=== PATIENT | female | born 1970 | race Caucasian/White ===

== ENCOUNTER → 2016-06-17 | Outpatient (CLI) | payer OTHER ==
[~2016-06-17] MED LIST: CHOL20009 PO; KETO10TA PO; LEVO112T4 PO; MTRUNK PO; OXYC-57 PO; PRENTAB26 PO
--- NOTE | 2016-06-21 12:25 | MAMMOGRAPHY REPORT ---
BILATERAL DIGITAL SCREENING MAMMOGRAM TOMOSYNTHESIS WITH CAD: 06/17/2016 CLINICAL HISTORY: Routine screening. Patient has no complaints. TECHNIQUE: Breast tomosynthesis in addition to standard 2D mammography was performed. Current study was also evaluated with a Computer Aided Detection (CAD) system. COMPARISON: Comparison is made to exams dated: 06/23/2015 mammogram, 05/01/2013 mammogram, 06/16/2015 ma mmogram, 06/11/2014 mammogram, 04/30/2012 mammogram, and 10/31/2011 mammogram - [facility] ter. BREAST COMPOSITION: The tissue of both breasts is heterogeneously dense, which may obscure small ma sses. FINDINGS: The parenchymal pattern is unchanged. No developing mass, architectural distortion or clu ster of suspicious microcalcifications is seen in either breast. IMPRESSION: ACR BI-RADS CATEGORY 2: BENIGN There is no mammographic evidence of malignancy. A 1 year screening mammogram is recommended. The p atient will receive written notification of the results. Approximately 10% of breast cancers are not detected with mammography. A negative mammographic repor t should not delay biopsy if a clinically suggestive mass is present. Josseline Fitzgerald M.D. ay/:06/20/2016 15:49:34 Rabbit Breeder: Ashely AVILA(R)(M), [facility] letter sent: Normal 1/2 BI-RADS Code: ACR BI-RADS Category 2: Benign
== END | disposition home or self-care (01) ==
LOC: C.MAMM 16:27
PROVIDERS: ATTEND Obstetrics & Gynecology
DX: Z12.31 Encounter for screening mammogram for malignant neoplasm of breast (principal)

== ENCOUNTER → 2016-09-23 | Outpatient (CLI) | payer OTHER ==
--- NOTE | 2016-09-23 16:09 | DIAGNOSTIC IMAGING REPORT ---
RIGHT KNEE MRI HISTORY: RIGHT KNEE PAIN Right COMPARISON STUDY: None. TECHNIQUE: Multiplanar multisequence MRI of the right knee was performed according to standard department protocol without the use of contrast. FINDINGS: Menisci: Focal tear with thin the junction of the body and posterior horn of the medial meniscus best seen on axial image 15 consistent with a radial tear. Total length of the tear is 9 mm. The fragment is not displaced. The lateral meniscus is intact. Ligaments: The ACL, PCL, and LCL are intact. There is mild edema surrounding the intact MCL fibers. This is consistent with a grade I MCL injury (sprain). Extensor mechanism: The quadriceps tendon and patellar ligament are intact. Articular cartilage and bone: No fracture or dislocation. Small cartilage fissure within the lateral patellar facet. Remaining cartilage spaces are maintained. Joint effusion: Trace. Soft tissues: A 5.1 x 2.1 x 1.3 cm popliteal cyst. There is soft tissue edema within the posterior fossa. This may represent a partially ruptured popliteal cyst. IMPRESSION: 1. Focal radial tear within the junction of the body and posterior horn of the medial meniscus. 2. Grade I MCL injury (sprain). 3. Trace joint effusion. 4. Popliteal cyst. Edema surrounding the popliteal cyst favors a partially ruptured cyst. Electronically signed by: Terence Pal M.D. 09/23/2016 4:07 PM Dictated Date/Time: 09/23/2016 4:00 PM
== END | disposition home or self-care (01) ==
LOC: C.MRI 14:47
PROVIDERS: ATTEND Orthopaedic Surgery
DX: S83.241A Other tear of medial meniscus, current injury, right knee, initial encounter (principal); X58.XXXA Exposure to other specified factors, initial encounter

== ENCOUNTER → 2016-09-28 | Day surgery (SDC) | payer OTHER ==
[2016-09-27 13:15] VITALS: Ht 172.7 cm; Wt 72.7 kg
[~2016-09-28] VITALS: Ht 172.7 cm; Wt 72.7 kg
[~2016-09-28] MED LIST changes: +ATROPINE SULFATE 0.1 MG/ML 5ML SYR IV PRN; +CEFAZOLIN 1000MG/55 ML D5W IV SCH; +DEXAMETHASONE SOD INJ 4 MG/ML VIAL ONE; +EpINEphrine INJ 1MG/ML AMP 1 MG/ML AMP ONE; +FENTANYL CITRATE INJ 50 MCG/1 ML 2 ML VIAL ONE; +KETOROLAC TROMETHAMINE 30 MG/ML VIAL IV. PRN; +KETOROLAC TROMETHAMINE 30 MG/ML VIAL ONE; +LIDOCAINE HCL 2% 2 ML VIAL (20MG/ML) ONE; +MIDAZOLAM HCL 1 MG/ML 2ML VIAL ONE; +MISSING PHYSICIAN SIGNATURE ON ORDER SCH; -MTRUNK PO; +ONDANSETRON INJ 2 MG/ML 2 ML VIAL IV PRN; +ONDANSETRON INJ 2 MG/ML 2 ML VIAL ONE; +OXYCODONE/ACETAMINOPHEN 5-325 TAB PO PRN; -PRENTAB26 PO; +PROMETHAZINE HCL INJ 6.25 MG in SODIUM CHLORIDE 0.9% 50ML 50 ML IV PRN; +PROPOFOL IV EMULSION 10 MG/ML 20 ML VIAL IV ONE; +ROPIVACAINE 0.5% 5 MG/ML 30 ML VIAL ONE; +SODIUM CHLORIDE 0.9% 1000ML 1,000 ML IV SCH
--- NOTE | 2016-09-28 09:29 | History & Physical Bridge - SC ---
H&P Re-Evaluation Bridge Note: I have examined the patient, reviewed the History & Physical and in the interval since the performance of the History & Physical I have noted the following changes of clinical significance: No changes noted
[2016-09-28] MEDS: LACTATED RINGER'S 1000ML 1,000 ML IV SCH ×2 (09:37→12:18)
--- NOTE | 2016-09-28 11:40 | Discharge Instructions-SurgCtr ---
Discharge Instructions Date of Service Sep 28, 2016. Visit Reason for Visit: Right Knee Current Tear Medial Cartilage &/Or Men Discharge Discharge Diagnosis / Problem: RIGHT MEDIAL MENISCUS TEAR Discharge Goals Goal(s): Decrease discomfort, Improve function, Therapeutic intervention Activity Recommendations Activity Limitations: per Instructions/Follow-up section Weightbearing Status: Right weightbearing (as tolerated) Anesthesia . Post Anesthesia Instructions: If you have had General Anesthesia or IV Sedation: * Do not drive today. * Resume driving when surgeon permits. * Do not make important decisions or sign legal documents today. * Call surgeon for: 1. Temperature elevations greater than 101 degrees F. 2. Uncontrollable pain. 3. Excessive bleeding. 4. Persistent nausea and vomiting. 5. Medication intolerance (nausea, vomiting or rash). * For nausea and vomiting use only clear liquids such as: tea, soda, bouillon until nausea subsides, then gradually increase diet as tolerated. * If you have any concerns or questions, call your surgeon's office. If physician is unavailable and it is an emergency, call 911 or go to the nearest emergency room. . Instructions / Follow-Up Instructions / Follow-Up MEDICATIONS: * Resume previous medications unless instructed otherwise by your surgeon. * Always take pain medication on a full stomach or with food to avoid upset stomach. * Do not drink alcohol or drive while taking narcotics. * Ibuprofen or Tylenol may be taken if narcotic not needed. SPECIAL CARE INSTRUCTIONS: __ None _X_ Keep extremity elevated and iced x 48 hours; apply ice 20-30 minutes 8-10 times/day. May remove at night. __ Crutches __ May discard when able __ Brace/Post-op shoe __ 24 hrs/day __ Remove at night _X_ Dressing __ Maintain until seen in office, may shower with plastic over site _X_ Remove dressings in 24-48 hours and then may shower _X_ Cover incisions with band-aids after showering __ Do not remove steri-strips Call physician if chills or temperature rises above 102 degrees or pain unrelieved by prescribed pain medications. Office [phone] FOLLOW UP IN 2 WEEKS Diet Recommendations Home Diet: resume previous diet Procedures Procedures Performed: Right Knee Arthroscopy, Partial Medial Meniscectomy Pending Studies Studies pending at discharge: no Medical Emergencies . Who to Call and When: Medical Emergencies: If at any time you feel your situation is an emergency, please call 911 immediately. . Non-Emergent Contact Non-Emergency issues call your: Surgeon . . "Provider Documentation" section prepared by Efrain Hager. .
--- NOTE | 2016-09-28 11:40 | [facility] Post Operative Brief Note ---
Immediate Operative Summary Operative Date Sep 28, 2016. Pre-Operative Diagnosis Medial Meniscus Tear Right Knee Post-Operative Diagnosis same + Mild DJD Procedure(s) Performed Right Knee Arthroscopy, Partial Medial Meniscectomy Surgeon Dr Hastings Schedule Supervisor Surgeon(s) Koffi Hager PA-C Estimated Blood Loss minimal Findings Medial Meniscus Tear + Mild DJD Specimens none Anesthesia General Complication(s) None Disposition Recovery Room / PACU
[2016-09-28] MEDS: FENTANYL CITRATE INJ 50 MCG/1 ML 2 ML VIAL IV PRN ×3 (12:00→12:36)
--- NOTE | 2016-09-28 12:38 | OPERATIVE REPORT ---
DATE OF OPERATION: 09/28/2016 SURGEON: Dr. Blaine Hastings. CONTACT LENS ASSISTANT: ELLIS Be PREOPERATIVE DIAGNOSIS: Right degenerative medial meniscus tear. POSTOPERATIVE DIAGNOSES: 1. Right degenerative medial meniscus tear. 2. Right knee, very mild knee degenerative joint disease. PROCEDURES PERFORMED: 1. Right knee exam under anesthesia. 2. Right knee diagnostic arthroscopy. 3. Right knee arthroscopic partial medial meniscectomy. COMPLICATIONS: None. ESTIMATED BLOOD LOSS: Minimal. TOURNIQUET TIME: 21 minutes at 300 mmHg. ANESTHESIA: General. SPECIMENS: None. 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 She sustained a twisting type injury. She was seen by my partner Dr. Rodrigez. She was diagnosed with mild MCL sprain and a medial meniscus tear. This was confirmed by MRI. Her symptoms localized to the medial side of her knee. She elected to proceed with surgical treatment. OPERATIVE FINDINGS: Examination under anesthesia of the right knee revealed just a trace knee effusion. Range of motion is full extension to 135 degrees of flexion. She had negative Mary, negative anterior drawer, and negative posterior drawer. No varus or valgus instability. Cinthia's is negative for mechanical symptoms. ARTHROSCOPIC FINDINGS: Arthroscopic findings revealed just a trace knee effusion. The undersurface of the patella and trochlea were fairly normal. In the intercondylar notch, the ACL and PCL were intact. In the medial compartment, there was a complex degenerative tear of the posterior horn of the medial meniscus. The articular surface of the femur and the tibia showed some mild grade 1 changes. In the lateral compartment, there are some slight fraying in the inner rim of the lateral meniscus. Some grade 2 changes in the lateral tibial plateau. OPERATIVE PROCEDURE: The patient was taken to the operating room, identified and placed on the operating table in the supine position. All contact areas were appropriately padded. IV antibiotics were provided by anesthesia team. General anesthetic was implemented by anesthesia team. Right thigh tourniquet was then placed. The right knee was then examined under anesthesia with findings as described above. The right leg was then prepped and draped in the usual sterile fashion. The right leg was elevated and exsanguinated with Esmarch and tourniquet was placed at 300 mmHg. Routine right knee arthroscopy was then performed through typical anteromedial and anterolateral portals. A superolateral outflow portal was established for outflow. I did resect some of the fat pad, so that I could adequately see from side to side. Attention was drawn to the medial meniscus. With the use of motorized and hand controlled instruments, a partial medial meniscectomy was then performed. I resected the meniscus back to stable tissue. We tried to leave as much tissue present to provide residual meniscal function. Medial compartment was fairly tight, so I think her MCL injury was fairly mild. Once this was complete, the arthroscopic instruments were placed throughout the knee joint. All extraneous debris was removed. I did shave and trim up the inner rim over lateral meniscus slightly. Once this was complete, the arthroscopic instruments were then removed from the joint. The portals were closed with 3-0 Prolene suture in a simple fashion. The knee was then cleaned and dried. The knee was then injected with 30 mL of 0.5% ropivacaine with epinephrine and 30 mg of Toradol. A sterile dressing with Xeroform, 4 x 4, sterile cast padding and Qamar bandage were applied. The patient then brought out of general anesthesia and transferred to the recovery room in stable condition. The patient tolerated the procedure well with no complications. All needle and sponge counts were correct at the end of the operation. I attest to the content of the Intraoperative Record and any orders documented therein. Any exception s are noted below.
[2016-09-28 12:57] VITALS: TEMP 37.3
--- NOTE | 2016-09-28 13:19 | Anesthesia Progress Nt - [facility] ---
Anesthesia Post Op Note Date & Time Sep 28, 2016 at 13:19 Vital Signs Pain Intensity: 3.0 Vital Signs Past 12 Hours Date Time Temp Pulse Resp B/P (MAP) Pulse Ox O2 Delivery O2 Flow Rate FiO2 09/28/16 12:57 37.3 65 16 112/65 (81) 99 Room Air 09/28/16 12:47 113/70 09/28/16 12:46 37.1 61 16 113/70 99 Room Air 09/28/16 12:45 52 10 09/28/16 12:45 54 10 97 09/28/16 12:42 114/72 09/28/16 12:40 72 22 09/28/16 12:40 74 22 100 09/28/16 12:37 121/72 09/28/16 12:35 55 22 09/28/16 12:35 57 22 99 09/28/16 12:32 113/67 09/28/16 12:30 53 11 09/28/16 12:30 53 11 99 09/28/16 12:27 122/68 09/28/16 12:25 72 21 09/28/16 12:25 75 21 100 09/28/16 12:22 124/78 09/28/16 12:20 49 12 100 09/28/16 12:20 49 12 09/28/16 12:19 49 8 100 09/28/16 12:19 48 8 09/28/16 12:17 129/83 09/28/16 12:15 112/70 09/28/16 12:14 54 7 09/28/16 12:14 52 7 100 09/28/16 12:12 112/70 09/28/16 12:09 52 10 100 09/28/16 12:09 55 10 09/28/16 12:07 135/81 09/28/16 12:04 53 16 100 09/28/16 12:04 51 16 09/28/16 12:02 131/81 09/28/16 11:59 54 17 09/28/16 11:59 56 17 97 09/28/16 11:57 133/80 09/28/16 11:54 43 11 09/28/16 11:54 43 11 09/28/16 11:52 125/74 09/28/16 11:49 58 14 09/28/16 11:49 61 14 100 09/28/16 11:47 127/80 09/28/16 11:44 71 19 09/28/16 11:44 73 19 100 09/28/16 11:42 140/74 09/28/16 11:40 127/65 09/28/16 11:39 36.5 52 12 127/65 100 Diffusion Mask 6 09/28/16 09:07 37.1 58 16 118/78 (91) 100 Room Air Notes Mental Status: alert / awake / arousable, participated in evaluation Pt Amnestic to Procedure: Yes Nausea / Vomiting: adequately controlled Pain: adequately controlled Airway Patency, RR, SpO2: stable & adequate BP & HR: stable & adequate Hydration State: stable & adequate Anesthetic Complications: no major complications apparent
[2016-09-28 13:22] VITALS: BP 114/71; PULSE 52; O2SAT 100
== END | disposition home or self-care (01) ==
LOC: X.SURG 08:30
PROVIDERS: ATTEND Orthopaedic Surgery Sports Medicine
DX: S83.206A Unspecified tear of unspecified meniscus, current injury, right knee, initial encounter (principal); X50.0XXA Overexertion from strenuous movement or load, initial encounter; M17.11 Unilateral primary osteoarthritis, right knee

== ENCOUNTER → 2016-10-26 | Outpatient (CLI) | payer OTHER ==
[~2016-10-26] MED LIST changes: -ATROPINE SULFATE 0.1 MG/ML 5ML SYR IV PRN; -CEFAZOLIN 1000MG/55 ML D5W IV SCH; -DEXAMETHASONE SOD INJ 4 MG/ML VIAL ONE; -EpINEphrine INJ 1MG/ML AMP 1 MG/ML AMP ONE; -FENTANYL CITRATE INJ 50 MCG/1 ML 2 ML VIAL ONE; -KETO10TA PO; -KETOROLAC TROMETHAMINE 30 MG/ML VIAL IV. PRN; -KETOROLAC TROMETHAMINE 30 MG/ML VIAL ONE; -LIDOCAINE HCL 2% 2 ML VIAL (20MG/ML) ONE; -MIDAZOLAM HCL 1 MG/ML 2ML VIAL ONE; -MISSING PHYSICIAN SIGNATURE ON ORDER SCH; -ONDANSETRON INJ 2 MG/ML 2 ML VIAL IV PRN; -ONDANSETRON INJ 2 MG/ML 2 ML VIAL ONE; -OXYCODONE/ACETAMINOPHEN 5-325 TAB PO PRN; -PROMETHAZINE HCL INJ 6.25 MG in SODIUM CHLORIDE 0.9% 50ML 50 ML IV PRN; -PROPOFOL IV EMULSION 10 MG/ML 20 ML VIAL IV ONE; -ROPIVACAINE 0.5% 5 MG/ML 30 ML VIAL ONE; -SODIUM CHLORIDE 0.9% 1000ML 1,000 ML IV SCH
[2016-10-26 17:09] LABS: THYROID STIMULATING HORMONE 0.152 uIu/ml (0.300-4.500)
== END | disposition home or self-care (01) ==
LOC: C.LAB1850 15:20
PROVIDERS: ATTEND Family Medicine
DX: E03.9 Hypothyroidism, unspecified (principal); E55.9 Vitamin D deficiency, unspecified

== ENCOUNTER → 2017-05-08 | Outpatient (CLI) | payer OTHER ==
[~2017-05-08] MED LIST changes: -OXYC-57 PO
== END | disposition home or self-care (01) ==
LOC: C.PAPS 11:01
PROVIDERS: ATTEND Obstetrics & Gynecology
DX: Z87.898 Personal history of other specified conditions (principal); Z01.419 Encounter for gynecological examination (general) (routine) without abnormal findings

== ENCOUNTER → 2017-06-21 | Outpatient (CLI) | payer OTHER ==
--- NOTE | 2017-06-22 15:17 | MAMMOGRAPHY REPORT ---
BILATERAL DIGITAL SCREENING MAMMOGRAM TOMOSYNTHESIS WITH CAD: 06/21/2017 CLINICAL HISTORY: Routine screening. TECHNIQUE: Breast tomosynthesis in addition to standard 2D mammography was performed. Current study was also evaluated with a Computer Aided Detection (CAD) system. COMPARISON: Comparison is made to exams dated: 06/17/2016 mammogram, 06/16/2015 mammogram, 06/11/2014 m ammogram, 05/01/2013 mammogram, 04/30/2012 mammogram, and 04/29/2011 mammogram - [facility] er. BREAST COMPOSITION: The tissue of both breasts is heterogeneously dense, which may obscure small mas ses. FINDINGS: The parenchymal pattern is unchanged. No developing mass, architectural distortion or clus ter of suspicious microcalcifications is seen in either breast. IMPRESSION: ACR BI-RADS CATEGORY 2: BENIGN There is no mammographic evidence of malignancy. A 1 year screening mammogram is recommended. The pa tient will receive written notification of the results. Approximately 10% of breast cancers are not detected with mammography. A negative mammographic report should not delay biopsy if a clinically suggestive mass is present. Josseline Fitzgerald M.D. ay/:06/21/2017 16:36:55 Forms Designer: Best AVILA(R)(M), [facility] letter sent: Normal 1/2 BI-RADS Code: ACR BI-RADS Category 2: Benign
== END | disposition home or self-care (01) ==
LOC: C.MAMM 16:07
PROVIDERS: ATTEND Obstetrics & Gynecology
DX: Z12.31 Encounter for screening mammogram for malignant neoplasm of breast (principal)

== ENCOUNTER → 2017-07-05 | Outpatient (CLI) | payer OTHER | END | disposition home or self-care (01) | LOC: C.LAB1850 07:28 | PROVIDERS: ATTEND Family Medicine | DX: E03.9 Hypothyroidism, unspecified (principal); E55.9 Vitamin D deficiency, unspecified; K90.9 Intestinal malabsorption, unspecified ==

== ENCOUNTER 2023-11-07 10:41 | Inpatient (IN) ==
[2023-11-07] MEDS: ACETAMINOPHEN 1,000 MG/100 ML VIAL IV STA (10:55)
[2023-11-07] MEDS: ONDANSETRON INJ 2 MG/ML 2 ML VIAL IV STA (10:55)
--- NOTE | 2023-11-07 11:01 | Emergency Department Note ---
Impression & Plan Hydronephrosis concurrent with and due to calculi of kidney and ureter, Acute right flank pain, Mass of left thigh ED Provider Note NAME: GATITO DONOVAN AGE: 53 SEX: F : 1970 ARRIVES VIA: Ambulance INFORMANT: Patient, ED PROVIDER(S): Alden Gan DO CHIEF COMPLAINT: Flank pain HPI: The patient is a 53-year-old female who presented to the emergency department with acute onset of right-sided flank pain. The patient states that she was sleeping at the time and she was awoke with severe right-sided flank pain that she rated 10 out of 10. She does have a history of kidney stones in the past. She has had lithotripsy in the past as well. She has severe nausea as well as vomiting. She called 911 because of severity of pain. The patient received IV Toradol IV Zofran and IV fentanyl prior to arrival. She states her pain is significantly improved but her nausea is still present and severe. She denies having any hematemesis. She denies having any chest pain or difficulty breathing. ROS: See above HPI for pertinent positives & negatives. A total of 10 systems reviewed and were otherwise negative. PAST MEDICAL HISTORY: See Below PAST SURGICAL HISTORY: See Below FAMILY HISTORY: See Below SOCIAL HISTORY: See Below HOME MEDICATIONS: See Below ALLERGIES: See Below VITALS: See Below PHYSICAL EXAMINATION: GENERAL: The patient is awake and alert. The patient is very anxious and appears to be uncomfortable. EYES: The conjunctivae are clear. The pupils are round and reactive. EARS, NOSE, MOUTH AND THROAT: The nose is without any evidence of any deformity. NECK: The neck is nontender and supple. RESPIRATORY: Normal respiratory effort is noted there is no evidence of wheezing rhonchi or rales CARDIOVASCULAR: Regular rate and rhythm noted there no murmurs rubs or gallops normal S1 normal S2. GASTROINTESTINAL: The abdomen is soft. Abdomen is nontender. BACK: Right CVA tenderness was noted to percussion. MUSCULOSKELETAL/EXTREMITIES: There is no evidence of gross deformity full range of motion is noted in the hips and shoulders. SKIN: There is no obvious evidence of any rash. There are no petechiae, pallor or cyanosis noted. NEUROLOGIC: Patient is awake alert and oriented x3. MEDICAL DECISION MAKING: The patient is a 53-year-old female who presented to the emergency department for an acute onset of right flank pain. The patient was awoken from sleep with the pain. She does have a history of kidney stone and renal colic in the past and has had lithotripsy. The patient was found to have an obstructing calculus in the distal right ureter. There was hydronephrosis noted. The patient was treated with multiple doses of pain medication in the emergency department. She was reevaluated multiple times. Ultimately she was much more comfortable but given the size of the kidney stone as well as hydronephrosis I do not feel that she would be a good candidate for outpatient management. For this reason I discussed her condition with the on-call [facility] hospitalist as well as the on-call urology group. They have agreed to evaluate the patient for further management and disposition. Triage Nursing notes reviewed. Prior medical records reviewed Vital Signs: reviewed and remarkable for no significant abnormalities Differential diagnosis: Renal colic, UTI, appendicitis, diverticulitis, mesenteric ischemia, aortic pathology, infections, inflammatory bowel disease, PUD, biliary pathology, as well as other pathologies. ER treatment provided: See below Diagnostics interpreted by me: ECG: [none] Cardiac Monitoring: An order was placed for continuous cardiac monitoring. The monitor shows a rate of 57 bpm with sinus bradycardia. Laboratory studies: As stated above and show below. Imaging studies: See below. Radiographic imaging was reviewed by myself Consultation(s): I discussed this case with Tiarra who is on for the urology group. I discussed this case with Jacki who is on for the [facility] Hospitalist group. Past Med/Surg History Problem List (Updated 11/07/23 @ 14:06 by Alden Gan DO) Mass of left thigh (Acute) Acute right flank pain (Acute) Hydronephrosis concurrent with and due to calculi of kidney and ureter (Acute) Right ureteral stone Postmenopausal Colon cancer screening Choroid plexus cyst Hypothyroidism Encounter for gynecological examination with abnormal finding Breast mass, right History of cervical dysplasia Adhesive capsulitis of left shoulder Tendinitis of left rotator cuff Encounter for pre-operative examination Status post arthroscopy of left shoulder Piriformis syndrome of left side Adhesive capsulitis of right shoulder Status post arthroscopy of right shoulder UTI (urinary tract infection) Nephrolithiasis Kidney stones, calcium oxalate Epidermal cyst Medical History Kidney stones hx History of COVID-19 03/2021>COUGH ONLY/RESOLVED History of endometriosis Hypothyroidism History of TMJ disorder remote hx, 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 History of tonsillectomy and adenoidectomy History of arthroscopy of right knee History of wisdom tooth extraction History of laparoscopy eosis S/P fine needle aspiration benign right breast mass Status post colposcopy S/P LEEP of cervix 2004 Family History Uncle Diabetes Grandmother (Maternal) Diabetes Lung cancer Grandmother (Paternal) Diabetes Grandfather (Maternal) Diabetes Grandfather (Paternal) Diabetes Father Dyslipidemia Multiple myeloma Brother History of anesthesia reaction combative Other Myocardial infarction Denies family history of Ovarian cancer Breast cancer Colorectal cancer Social History Smoking Status: Never smoker Second Hand Exposure: No; Do You Dip or Chew Tobacco: No; Hx Alcohol Use: Yes Hx Substance Use: No Preferred Language: Spanish Communication Ability: Effective Watershed Manager Required: No Beliefs That Will Affect Care: Yarsanism Yarsanism Beliefs: RESTORATION Current Living Situation: Family Current Living Situation Comment: CHILDREN Feels Safe at Home: Yes Assistive Devices: Other Allergies Allergies Allergy/AdvReac Type Severity Reaction Status Date / Time No Known Allergies Allergy Unknown Verified 11/07/23 12:48 Home Meds Home Medications Medication Instructions Recorded Confirmed levothyroxine 125 mcg tablet 125 mcg PO QAM 05/12/19 11/07/23 cholecalciferol (vitamin D3) 125 125 mcg PO QAM 06/17/20 11/07/23 mcg (5,000 unit) tablet (Vitamin D3) cyanocobalamin (vitamin B-12) 5,000 mcg PO WK 06/17/20 11/07/23 5,000 mcg disintegrating tablet topiramate 200 mg tablet 200 mg PO HS 11/07/23 11/07/23 Results & Data (ED) Vital Signs Vital Signs - 24 hr 11/07/23 11:02 11/07/23 11:03 11/07/23 12:14 Temperature 36.5 C Temperature Source Oral Pulse Rate 78 48 L Pulse Rate [Apical] 57 L Respiratory Rate 18 18 Respiratory Effort / Characteristics Non-Labored Spontaneous Non-Labored Respiratory Depth Normal Normal Respiratory Pattern Regular Regular Blood Pressure 134/62 Blood Pressure Mean 86 Pulse Oximetry 98 97 Oxygen Delivery Method Room Air Room Air Sepsis Recent Fever Within 48 Hours No Sepsis New/Unexplained Change in Mental Status N/A Sepsis Action Taken by Nursing No Action Required 11/07/23 12:14 Temperature Temperature Source Pulse Rate Pulse Rate [Apical] Respiratory Rate Respiratory Effort / Characteristics Respiratory Depth Respiratory Pattern Blood Pressure Blood Pressure Mean Pulse Oximetry 98 Oxygen Delivery Method Room Air Sepsis Recent Fever Within 48 Hours Sepsis New/Unexplained Change in Mental Status Sepsis Action Taken by Prison Medications Current Medication List: was personally reviewed by me Laboratory Data Attestation: I reviewed the patient's lab results. 11/07/23 10:51 11/07/23 10:51 Lab Results 11/07/23 Range/Units 10:51 WBC 6.89 (4.8-10.8) K/ul RBC 4.14 L (4.20-5.40) M/uL Hgb 11.6 L (12.0-16.0) g/dl Hct 35.4 L (37.0-47.0) % MCV 85.5 (80.0-100.0) fL MCH 28.0 (25.0-34.0) pg MCHC 32.8 (32.0-36.0) g/dL RDW Std Deviation 37.9 (36.4-46.3) fL RDW Coeff of Mona 12.3 (11.5-14.5) % Plt Count 133 (130-400) K/uL MPV 13.1 H (9.4-12.4) fL Immature Gran % (Auto) 0.1 % Neut % (Auto) 33.7 % Lymph % (Auto) 48.8 % Wells % (Auto) 8.6 % Eos % (Auto) 7.1 % Baso % (Auto) 1.7 % Neut # (Auto) 2.32 (1.40-6.50) K/uL Lymph # (Auto) 3.36 (1.20-3.40) K/uL Wells # (Auto) 0.59 (0.11-0.59) K/uL Eos # (Auto) 0.49 (0.00-0.50) K/uL Baso # (Auto) 0.12 (0.00-0.20) K/uL Immature Gran # (Auto) 0.01 (0.01-0.20) K/uL Sodium 139 (136-145) mmol/L Potassium 3.4 L (3.5-5.1) mmol/L Chloride 112 H (98-107) mmol/L Carbon Dioxide 19 L (21-32) mmol/L Anion Gap 8 (3-11) BUN 23 (6-23) mg/dl Creatinine 0.97 (0.6-1.2) mg/dl Est Cr Clr Drug Dosing 72.4 ml/min Est GFR ( Amer) 77.8 ml/min Est GFR (Non-Af Amer) 67.2 ml/min BUN/Creatinine Ratio 23.7 H (10-20) Glucose 118 H (70-99(Fasting)) mg/dl Calcium 9.2 (8.6-10.3) mg/dl Total Bilirubin 1.0 (0.2-1.0) mg/dl AST 17 (13-39) U/L ALT 13 (7-52) U/L Alkaline Phosphatase 49 (34-104) U/L Total Protein 6.8 (6.0-8.3) gm/dl Albumin 4.4 (3.4-5.0) gm/dl Globulin 2.4 L (2.5-4.0) gm/dl Albumin/Globulin Ratio 1.8 (0.9-2) Lipase 46 (11-82) U/L Administered Medications Hydromorphone HCl (Hydromorphone Inj 0.5 Mg/0.5 Ml Syr) 0.5 mg IV Q15M PRN PRN Reason: Pain Stop: 11/21/23 12:19 Last Admin: 11/07/23 13:07 Dose: 0.5 mg Documented By: Admin: 11/07/23 12:38 Dose: 0.5 mg Documented By: ALVINA Discontinued Medications Diphenhydramine HCl (Diphenhydramine 50 Mg/Ml Vial) 25 mg IV NOW STA Stop: 11/07/23 11:02 Last Admin: 11/07/23 11:17 Dose: 25 mg Documented By: ALVINA Sodium Chloride (Nss) 1,000 mls @ 999 mls/hr IV .Q1H1M STA Stop: 11/07/23 11:47 Last Infusion: 11/07/23 12:29 Dose: Infused Documented By: Admin: 11/07/23 11:19 Dose: 999 mls/hr Documented By: ALVINA Acetaminophen (Ofirmev) 1,000 mg in 100 mls @ 400 mls/hr IV NOW STA Stop: 11/07/23 11:01 Last Infusion: 11/07/23 11:18 Dose: Infused Documented By: Admin: 11/07/23 10:55 Dose: 400 mls/hr Documented By: ALVINA Promethazine HCl (Phenergan) 6.25 mg in 50.25 mls @ 201 mls/hr IV NOW STA Stop: 11/07/23 11:01 Last Admin: 11/07/23 12:19 Dose: Not Given Documented By: ALVINA Ketorolac Tromethamine (Ketorolac Tromethamine 15 Mg/Ml Vial) 15 mg IV NOW STA Stop: 11/07/23 11:18 Last Admin: 11/07/23 11:21 Dose: 15 mg Documented By: ALVINA Ondansetron HCl (Ondansetron Inj 2 Mg/Ml 2 Ml Vial) 4 mg IV NOW STA Stop: 11/07/23 10:52 Last Admin: 11/07/23 10:55 Dose: 4 mg Documented By: ALVINA Imaging Data Attestation: I personally reviewed and interpreted this imaging study as follows: My Impression: CT of the abdomen and pelvis was obtained in the emergency department. My interpretation is hydronephrosis with renal calculus as well as a distal right ureteral calculi. Final report below. Radiologist's Impression: Abdomen/Pelvis CT 11/07/23 10:47 CT OF THE ABDOMEN AND PELVIS WITHOUT CONTRAST CLINICAL HISTORY: Right flank pain. COMPARISON STUDY: Renal ultrasound June 15, 2021. KUB July 09, 2021. TECHNIQUE: Axial images of the abdomen and pelvis were obtained without IV contrast. Images were reviewed in the axial, sagittal, and coronal planes. Automated exposure control was utilized for the study. A dose lowering technique was utilized adhering to the principles of ALARA. FINDINGS: Lung bases are unremarkable. No pneumatosis, free air or portal venous gas is present. Clustered calculi within the lower pole of the right kidney measure up to 7 mm. There is moderate right hydroureteronephrosis due to a 6 mm distal right ureteral calculus, just inferior to the level of the SI joint. This is 6 cm proximal to the ureterovesical junction. There is mild right perinephric and periureteral stranding. No additional ureteral calculi are present. Evaluation of the remainder of the abdomen and pelvis is suboptimal on this unenhanced exam. Liver, spleen, adrenal glands and pancreas are unremarkable. There is no evidence for a bowel obstruction. Scattered sigmoid diverticula are present. There is no evidence for acute diverticulitis. There is no lymphadenopathy. A low-attenuation 2.9 x 1.9 cm circumscribed intermuscular focus within the anterior left thigh, between the iliopsoas and rectus femoris muscles is noted on image 308 of 365. IMPRESSION: 1. 6 mm distal right ureteral calculus, just inferior to the level of the SI joint, which results in moderate right hydroureteronephrosis. 2. Right-sided nephrolithiasis. 3. 2.9 x 1.9 cm circumscribed anterior left thigh low-attenuation focus. This is indeterminate but low suspicion. This could reflect a cyst, bursal fluid or a nerve sheath tumor, likely benign. Nonemergent ultrasound could be obtained for further evaluation. ACT 112: Negative or not required by law. Electronically signed by: Edward Enamorado M.D. 11/07/2023 12:07 PM Discharge Plan Visit Data Chief Complaint: Flank Pain ED Provider: Alden Gan Discharge Problem: Hydronephrosis concurrent with and due to calculi of kidney and ureter, Acute right flank pain, Mass of left thigh Patient Disposition: Being Evaluated by Hospitalist Forms Stand Alone Forms: My [facility] [employer] Prescriptions Prescriptions: No Action levothyroxine 125 mcg tablet 125 mcg PO QAM cholecalciferol (vitamin D3) [Vitamin D3] 125 mcg (5,000 unit) Tablet 125 mcg PO QAM cyanocobalamin (vitamin B-12) 5,000 mcg Tablet,Disintegrating 5,000 mcg PO WK Patient Comments: mondays Rx Instructions: Monday topiramate 200 mg tablet 200 mg PO HS Referrals Referrals: Millicent Triplett, [Primary Care Provider] -
[2023-11-07 11:10] LABS: Basophils # (auto) 0.12 K/uL (0.00-0.20); Basophils % (auto) 1.7 %; Eosinophils # (auto) 0.49 K/uL (0.00-0.50); Eosinophils % (auto) 7.1 %; Hematocrit (blood only) 35.4 % (37.0-47.0); Hemoglobin 11.6 g/dl (12.0-16.0); Immature Granulocytes # (auto) 0.01 K/uL (0.01-0.20); Immature Granulocytes % (auto) 0.1 %; Lymphocytes # (auto) 3.36 K/uL (1.20-3.40); Lymphocytes % (auto) 48.8 %; Mean Corpuscular Hgb Conc 32.8 g/dL (32.0-36.0); Mean Corpuscular Volume 85.5 fL (80.0-100.0); Mean Platelet Volume 13.1 fL (9.4-12.4); Monocytes # (auto) 0.59 K/uL (0.11-0.59); Monocytes % (auto) 8.6 %; Neutrophils # (auto) 2.32 K/uL (1.40-6.50); Neutrophils % (auto) 33.7 %; Platelet Count 133 K/uL (130-400); RDW Coefficient of Variation 12.3 % (11.5-14.5); RDW Standard Deviation 37.9 fL (36.4-46.3); Red Blood Count 4.14 M/uL (4.20-5.40); White Blood Count 6.89 K/ul (4.8-10.8)
[2023-11-07] MEDS: diphenhydrAMINE 50 MG/ML VIAL IV STA (11:17)
[2023-11-07 11:19] LABS: Albumin Globulin Ratio 1.8 (0.9-2); Albumin Level 4.4 gm/dl (3.4-5.0); BUN Creatinine Ratio 23.7 (10-20); Calcium 9.2 mg/dl (8.6-10.3); Creatinine Clr Calc Pharmacy 72.4 ml/min; Est GFR (African American) 77.8 ml/min; Est GFR (Non-African American) 67.2 ml/min; Globulin 2.4 gm/dl (2.5-4.0); Potassium 3.4 mmol/L (3.5-5.1); Total Protein 6.8 gm/dl (6.0-8.3)
[2023-11-07] MEDS: SODIUM CHLORIDE 0.9% 1,000 ML IV STA (11:19)
[2023-11-07] MEDS: KETOROLAC TROMETHAMINE 15 MG/ML VIAL IV STA (11:21)
--- NOTE | 2023-11-07 12:09 | CT Scan Report ---
CT OF THE ABDOMEN AND PELVIS WITHOUT CONTRAST CLINICAL HISTORY: Right flank pain. COMPARISON STUDY: Renal ultrasound June 15, 2021. KUB July 09, 2021. TECHNIQUE: Axial images of the abdomen and pelvis were obtained without IV contrast. Images were revi ewed in the axial, sagittal, and coronal planes. Automated exposure control was utilized for the digna dy. A dose lowering technique was utilized adhering to the principles of ALARA. FINDINGS: Lung bases are unremarkable. No pneumatosis, free air or portal venous gas is present. Clus tered calculi within the lower pole of the right kidney measure up to 7 mm. There is moderate right h ydroureteronephrosis due to a 6 mm distal right ureteral calculus, just inferior to the level of the SI joint. This is 6 cm proximal to the ureterovesical junction. There is mild right perinephric and p eriureteral stranding. No additional ureteral calculi are present. Evaluation of the remainder of the abdomen and pelvis is suboptimal on this unenhanced exam. Liver, spleen, adrenal glands and pancreas are unremarkable. There is no evidence for a bowel obstruction. Scattered sigmoid diverticula are pr esent. There is no evidence for acute diverticulitis. There is no lymphadenopathy. A low-attenuation 2.9 x 1.9 cm circumscribed intermuscular focus within the anterior left thigh, between the iliopsoas and rectus femoris muscles is noted on image 308 of 365. IMPRESSION: 1. 6 mm distal right ureteral calculus, just inferior to the level of the SI joint, which results in moderate right hydroureteronephrosis. 2. Right-sided nephrolithiasis. 3. 2.9 x 1.9 cm circumscribed anterior left thigh low-attenuation focus. This is indeterminate but lo w suspicion. This could reflect a cyst, bursal fluid or a nerve sheath tumor, likely benign. Nonemerg ent ultrasound could be obtained for further evaluation. ACT 112: Negative or not required by law. Electronically signed by: Edward Enamorado M.D. 11/07/2023 12:07 PM
[2023-11-07] MEDS: PROMETHAZINE 6.25 MG/50.25 ML BAG IV STA (12:19)
[2023-11-07] MEDS: HYDROmorphone INJ 0.5 MG/0.5 ML SYR IV PRN ×2 (12:38→20:25)
--- NOTE | 2023-11-07 12:58 | Urology Consultation ---
Date of Consultation November 07, 2023 Assessment & Plan (1) Right ureteral stone: (2) Nephrolithiasis: 53-year-old female with history of kidney stones presented to the emergency department with severe onset of right flank pain. CT abdomen pelvis demonstrated a 6 mm distal right ureteral stone with moderate hydroureteronephrosis. She is afebrile and hemodynamically stable Lab work reviewedcreatinine 0.97, no leukocytosis No urinalysis at time of interview CT imaging reviewed and discussed Reviewed stone management options including trial of passage versus surgical intervention with ureteroscopy, laser lithotripsy and stent placement today versus outpatient ESWL on Monday After discussion, she elects outpatient ESWL on Monday Ordered KUB to check stone visualization prior to procedure Recommend collect UA and urine culture today, treat if indicated Continue supportive care, symptom management and pain control Recommend strain all urine Will plan for right ESWL as an outpatient on Thursday 11/09 Discussed plan of care with Dr. Fitzgerald and attending ER physician Please contact our service with any additional questions or concerns History of Present Illness History of Present Illness This is a 53-year-old female with past medical history of kidney stones who presented to the emergency department today for evaluation of acute onset of severe right flank pain. On arrival to ED, she was afebrile and hemodynamically stable. Lab work showed WBC of 6.89, hemoglobin 11.6, creatinine 0.97. CT abdomen and pelvis without contrast notable for a 6 mm distal right ureteral calculus resulting in moderate right hydroureteronephrosis, additional right-sided nephrolithiasis. ED course: IV fluids, Tylenol, ketorolac, hydromorphone, and ondansetron. No urine sample at time of visit. Patient seen in the emergency department. She is resting in litter. She reports sudden onset of severe right flank pain awakening her from sleep earlier today. Reports episode of vomiting at time of pain onset. Continues to have some nausea. Denies fever or chills. She is voiding spontaneously. Denies dysuria or hematuria. Flank pain is improved since arrival. She has not had anything to eat or drink today. Prior history of kidney stones, prior hx of lithotripsy. Allergies Allergy/AdvReac Type Severity Reaction Status Date / Time No Known Allergies Allergy Unknown Verified 11/07/23 12:48 Home Medications Medication Instructions Recorded Confirmed Type levothyroxine 125 mcg tablet 125 mcg PO QAM 05/12/19 11/07/23 History cholecalciferol (vitamin D3) 125 125 mcg PO QAM 06/17/20 11/07/23 History mcg (5,000 unit) tablet (Vitamin D3) cyanocobalamin (vitamin B-12) 5,000 mcg PO WK 06/17/20 11/07/23 History 5,000 mcg disintegrating tablet topiramate 200 mg tablet 200 mg PO HS 11/07/23 11/07/23 History Patient History Medical History Kidney stones hx History of COVID-19 03/2021>COUGH ONLY/RESOLVED History of endometriosis Hypothyroidism History of TMJ disorder remote hx, 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 History of tonsillectomy and adenoidectomy History of arthroscopy of right knee History of wisdom tooth extraction History of laparoscopy eosis S/P fine needle aspiration benign right breast mass Status post colposcopy S/P LEEP of cervix 2003 Family History Uncle Diabetes Grandmother (Maternal) Diabetes Lung cancer Grandmother (Paternal) Diabetes Grandfather (Maternal) Diabetes Grandfather (Paternal) Diabetes Father Dyslipidemia Multiple myeloma Brother History of anesthesia reaction combative Other Myocardial infarction Denies family history of Ovarian cancer Breast cancer Colorectal cancer Social History Smoking Status: Never smoker Second Hand Exposure: No; Do You Dip or Chew Tobacco: No; Hx Alcohol Use: Yes Hx Substance Use: No Preferred Language: Malay Communication Ability: Effective Marketing Professional Required: No Beliefs That Will Affect Care: Yazidism Yazidism Beliefs: ALEVISM Current Living Situation: Family Current Living Situation Comment: CHILDREN Feels Safe at Home: Yes Assistive Devices: Other Review of Systems Review of Systems: All systems reviewed & are unremarkable except as noted in HPI & below Physical Exam Constitutional: well developed and well nourished; no acute distress Respiratory: normal respiratory effort; no respiratory distress and no labored breathing Gastrointestinal (Abdomen): Inspection/Auscultation: abdomen normal to inspection Musculoskeletal: Head/Neck/Chest: normocephalic Neurologic: moves all extremities and awake Psychiatric: Orientation: alert and oriented x 3 Results & Data Vital Signs (Past 12 Hours) Vital Signs Temp Pulse Pulse Resp BP Pulse Ox O2 Del Method 11/07/23 12:14 98 Room Air 11/07/23 12:14 57 L 18 97 Room Air 11/07/23 11:03 48 L 11/07/23 11:02 36.5 C 78 18 134/62 98 Room Air PG Care Time/CCT Total # of Minutes Spent Total Time Spent with Patient: Total time spent is greater than 50% in coordination of care (as documented) at patient's floor/unit and/or counseling patient: Coding Level of Care Code 33129 IN/OBS CONSULT LVL 3,45M Diagnoses Right ureteral stone N20.1 Nephrolithiasis N20.0
--- NOTE | 2023-11-07 14:14 | History & Physical Report ---
Date of Service November 07, 2023 Assessment & Plan (1) Acute right flank pain: (2) Right ureteral stone: (3) Hydronephrosis concurrent with and due to calculi of kidney and ureter: (4) Mass of left thigh: (5) Hypokalemia: (6) Anemia: Plan This is a 53 yr old F who has a significant PMH of hypothyroidism, hx of migraine, hx of nephrolithiasis who presents to ED with acute onset R sided flank pain x 1 day. Acute Right Flank Pain R ureteral stone with moderate hydroureteronephrosis --CT a/p 6 mm distal right ureteral calculus, just inferior to the level of the SI joint, which results in moderate right hydroureteronephrosis. Urology consulted -plan for outpt ESWL monday, KUB ordered IVF NSS @ 150/hr, flomax PRN Diluadid for severe pain, oxy IR for moderate pain and toradol for mild pain scheduled colace strain all urine obtain urinalysis when able, she is afebrile, wbc WNL, low threshold for empiric antibiotic pending UA Pt is menopausal no indication for hcg testing Anemia, Iron deficient previous hgb 14.8, 11.6 today low Iron, T sat 5%, high TIBC obtain b12, folate in a.m. no s/sx of bleeding start ferrous sulfate 325mg bid recommend age appropriate colonoscopy screen if not yet done Hypokalemia: replace, K 3.4 Mass of Left thigh: noted 2.9 x 1.9 cm circumscribed anterior left thigh low- attenuation focus, non vascular US ordered for follow up which felt consistent with complex cyst, recommending nonemergent MRI, pt requesting to do as outpatient Hypothyroidism: chronic, stable, continue levothyroxine Hx of Migraines: continue topamax DVT ppx: SCDs, encourage ambulation FULL CODE PCP: Dr. Triplett Dispo: admit to medical for pain control Pt was seen and examined in collaboration with Dr. Guardado, please see addendum A total of 60 minutes was spent coordinating, documenting, and providing care for this patient excluding time spent in the performance of separately billed services. This included personally viewing all current laboratories and imaging studies, medication reconciliation, outpatient chart review, and discussion with specialists. History of Present Illness Chief Complaint: Acute onset R sided flank pain x 1 day. Primary Care Provider: Ricks K. Keiter, This is a 53 yr old F who has a significant PMH of hypothyroidism, hx of migraine, hx of nephrolithiasis who presents to ED with acute onset R sided flank pain x 1 day. 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 She was dreaming of being shot and when she woke up with had acute onset of R sided flank pain that radiated to the groin. This was associated with nausea and vomiting. She has had similar sx in past with prior kidney stone. She has only urinated once since her night court magistrate, but denies dysuria, hematuria or urg/freq. She further denies f/c/s, chest pain or SOB. Pt daughter is at bedside. Discussed case with ED provider and reviewed outpt records in [facility]. CT abd/pelvis reveal a 6mm R ureteral calculus which is resulting in moderate hydroureteronephrosis. She was seen and evaluated by urology in ED who is recommending ESWL on Monday. It is recommended she be admitted for pain control. Allergies Allergy/AdvReac Type Severity Reaction Status Date / Time No Known Allergies Allergy Unknown Verified 11/07/23 12:48 Home Medications Medication Instructions Recorded Confirmed Type levothyroxine 125 mcg tablet 125 mcg PO QAM 05/12/19 11/07/23 History cholecalciferol (vitamin D3) 125 125 mcg PO QAM 06/17/20 11/07/23 History mcg (5,000 unit) tablet (Vitamin D3) cyanocobalamin (vitamin B-12) 5,000 mcg PO WK 06/17/20 11/07/23 History 5,000 mcg disintegrating tablet topiramate 200 mg tablet 200 mg PO HS 11/07/23 11/07/23 History Past Med/Surg History Problem List (Updated 11/07/23 @ 14:11 by Jacki Armenta PA-C) Anemia Hypokalemia Mass of left thigh (Acute) Acute right flank pain (Acute) Hydronephrosis concurrent with and due to calculi of kidney and ureter (Acute) Right ureteral stone Postmenopausal Colon cancer screening Choroid plexus cyst Hypothyroidism Encounter for gynecological examination with abnormal finding Breast mass, right History of cervical dysplasia Adhesive capsulitis of left shoulder Tendinitis of left rotator cuff Encounter for pre-operative examination Status post arthroscopy of left shoulder Piriformis syndrome of left side Adhesive capsulitis of right shoulder Status post arthroscopy of right shoulder UTI (urinary tract infection) Nephrolithiasis Kidney stones, calcium oxalate Epidermal cyst Medical History Kidney stones hx History of COVID-19 03/2021>COUGH ONLY/RESOLVED History of endometriosis Hypothyroidism History of TMJ disorder remote hx, 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 History of tonsillectomy and adenoidectomy History of arthroscopy of right knee History of wisdom tooth extraction History of laparoscopy eosis S/P fine needle aspiration benign right breast mass Status post colposcopy S/P LEEP of cervix 2004 Family History Uncle Diabetes Grandmother (Maternal) Diabetes Lung cancer Grandmother (Paternal) Diabetes Grandfather (Maternal) Diabetes Grandfather (Paternal) Diabetes Father Dyslipidemia Multiple myeloma Brother History of anesthesia reaction combative Other Myocardial infarction Denies family history of Ovarian cancer Breast cancer Colorectal cancer Social History Smoking Status: Never smoker Second Hand Exposure: No; Do You Dip or Chew Tobacco: No; Hx Alcohol Use: No Hx Substance Use: No Preferred Language: Kazakh Communication Ability: Effective Supervisor Frame Assembly Required: No Beliefs That Will Affect Care: None Current Living Situation: Spouse Current Living Situation Comment: CHILDREN Other Information That Helps Us Care for You: No Feels Safe at Home: Yes Safety Concerns: Feels Safe At This Time Assistive Devices: Other Review of Systems Review of Systems: All systems reviewed & are unremarkable except as noted in HPI & below Physical Exam Physical Exam: Constitutional: WD/WN, vitals as above, NAD, lying in bed, pleasant, conversing easily Head: Normocephalic, Atraumatic Eyes: pupils equal, conjunctivae normal, anicteric sclerae ENMT: external ear and nose normal, oropharynx normal Neck: normal visual inspection Respiratory: normal respiratory effort, lungs clear to auscultation, no wheeze, rales, rhonchi. No accessory muscle use Cardiovascular: RRR, no murmur, no edema Abdomen: normal bowel sounds, soft Musculoskeletal: no cyanosis or clubbing, AROM x 4 Skin: no rashes, warm and dry normal turgor Neurologic: no face palsy, no dysarthria CN's II-XI intact grossly bilaterally and moves all extremities Psychiatric: A+Ox3, euthymic affect : deferred Results & Data Results & Data Vital Signs (Past 12 Hours) Vital Signs Temp Pulse Pulse Resp BP Pulse Ox O2 Del Method 11/07/23 12:14 98 Room Air 11/07/23 12:14 57 L 18 97 Room Air 11/07/23 11:03 48 L 11/07/23 11:02 36.5 C 78 18 134/62 98 Room Air Laboratory Results I have independently reviewed and interpreted patient's admitting labs including CBC, CMP, Lipase Diagnostic Findings Abdomen/Pelvis CT 11/07/23 10:47 CT OF THE ABDOMEN AND PELVIS WITHOUT CONTRAST CLINICAL HISTORY: Right flank pain. COMPARISON STUDY: Renal ultrasound June 15, 2021. KUB July 09, 2021. TECHNIQUE: Axial images of the abdomen and pelvis were obtained without IV contrast. Images were reviewed in the axial, sagittal, and coronal planes. Automated exposure control was utilized for the study. A dose lowering technique was utilized adhering to the principles of ALARA. FINDINGS: Lung bases are unremarkable. No pneumatosis, free air or portal venous gas is present. Clustered calculi within the lower pole of the right kidney measure up to 7 mm. There is moderate right hydroureteronephrosis due to a 6 mm distal right ureteral calculus, just inferior to the level of the SI joint. This is 6 cm proximal to the ureterovesical junction. There is mild right perinephric and periureteral stranding. No additional ureteral calculi are present. Evaluation of the remainder of the abdomen and pelvis is suboptimal on this unenhanced exam. Liver, spleen, adrenal glands and pancreas are unremarkable. There is no evidence for a bowel obstruction. Scattered sigmoid diverticula are present. There is no evidence for acute diverticulitis. There is no lymphadenopathy. A low-attenuation 2.9 x 1.9 cm circumscribed intermuscular focus within the anterior left thigh, between the iliopsoas and rectus femoris muscles is noted on image 308 of 365. IMPRESSION: 1. 6 mm distal right ureteral calculus, just inferior to the level of the SI joint, which results in moderate right hydroureteronephrosis. 2. Right-sided nephrolithiasis. 3. 2.9 x 1.9 cm circumscribed anterior left thigh low-attenuation focus. This is indeterminate but low suspicion. This could reflect a cyst, bursal fluid or a nerve sheath tumor, likely benign. Nonemergent ultrasound could be obtained for further evaluation. ACT 112: Negative or not required by law. Electronically signed by: Edward Enamorado M.D. 11/07/2023 12:07 PM Medications Administered Medication List Hydromorphone HCl (Hydromorphone Inj 0.5 Mg/0.5 Ml Syr) 0.5 mg IV Q15M PRN PRN Reason: Pain Stop: 11/21/23 12:19 Last Admin: 11/07/23 13:07 Dose: 0.5 mg Documented By: Admin: 11/07/23 12:38 Dose: 0.5 mg Documented By: ALVINA Discontinued Medications Diphenhydramine HCl (Diphenhydramine 50 Mg/Ml Vial) 25 mg IV NOW STA Stop: 11/07/23 11:02 Last Admin: 11/07/23 11:17 Dose: 25 mg Documented By: ALVINA Sodium Chloride (Nss) 1,000 mls @ 999 mls/hr IV .Q1H1M STA Stop: 11/07/23 11:47 Last Infusion: 11/07/23 12:29 Dose: Infused Documented By: Admin: 11/07/23 11:19 Dose: 999 mls/hr Documented By: ALVINA Acetaminophen (Ofirmev) 1,000 mg in 100 mls @ 400 mls/hr IV NOW STA Stop: 11/07/23 11:01 Last Infusion: 11/07/23 11:18 Dose: Infused Documented By: Admin: 11/07/23 10:55 Dose: 400 mls/hr Documented By: ALVINA Promethazine HCl (Phenergan) 6.25 mg in 50.25 mls @ 201 mls/hr IV NOW STA Stop: 11/07/23 11:01 Last Admin: 11/07/23 12:19 Dose: Not Given Documented By: ALVINA Ketorolac Tromethamine (Ketorolac Tromethamine 15 Mg/Ml Vial) 15 mg IV NOW STA Stop: 11/07/23 11:18 Last Admin: 11/07/23 11:21 Dose: 15 mg Documented By: ALVINA Ondansetron HCl (Ondansetron Inj 2 Mg/Ml 2 Ml Vial) 4 mg IV NOW STA Stop: 11/07/23 10:52 Last Admin: 11/07/23 10:55 Dose: 4 mg Documented By: ALVINA Code Status & VTE Plan Code Status FULL VTE Prophylaxis Plan VTE Prophylaxis will be ordered: Yes Supervising Physician Co-Signing Physician Notes Attending Addendum: Case reviewed with the advanced practitioner. I have personally performed a history and physical examination on the patient. I have reviewed the advanced practitioner's documentation on the date of service referenced in note, and I agree with, and take responsibility for the plan of care. please refer to her notes for full details patient seen and examined, records reviewed by myself as well on exam, patient seen sitting up in bed, appears tired, but not in distress right flank pain is being relieved by IV Dilaudid so far, 2 out of 10 Pain level can reach 10 out of 10 at worst No fevers or chills, active nausea Still waiting to void VS noted and reviewed oriented X 3, not in distress, speaks in sentences with no effort nor accessory muscle use normal rate, regular rhythm, no murmurs clear breath sounds bilaterally non distended, soft, nontender, No CVA tenderness no bipedal edema, erythema, warmth no neuro deficits all labs, imaging noted and reviewed ASSESSMENT AND PLAN Right ureteral stone, 6 mm Right kidney stone, 7 mm History of kidney stones Renal function preserved UA no signs of infection CT abdomen pelvis showing: Right ureteral stone, 6 mm Right kidney stone, 7 mm Right kidney and ureter perinephric stranding Increase Dilaudid IV to 0.5 mg every 2 hours for better pain control Flomax daily Bowel regimen daily to prevent constipation Continue IV fluids Urology service consulted Plan for ESWL on Monday Iron deficiency anemia Iron level 26 Will start ferrous sulfate twice daily Discussed with patient regarding workup Anterior thigh cyst Incidental finding on the CT abdomen pelvis Ultrasound: this could reflect a complex cyst. However, other etiologies such as a nerve sheath tumor could appear similar. Nonemergent MRI with and without contrast is recommended for further evaluation Patient would like to follow-up as an outpatient. other diagnoses and plan of care as per advanced practitioner's notes Derick Guardado MD
--- NOTE | 2023-11-07 14:32 | Ultrasound Report ---
LEFT THIGH ULTRASOUND CLINICAL HISTORY: Left thigh lesion on CT. COMPARISON STUDY: CT of the abdomen and pelvis performed earlier today. TECHNIQUE: Sonography of the anterior left thigh was performed. FINDINGS: There is a 3.5 x 2 x 2.3 cm oval shaped circumscribed hypoechoic lesion within the anterior left thigh which corresponds to the lesion shown on CT of November 07, 2023. No color flow is identified within this lesion. No additional abnormalities are identified. IMPRESSION: 3.5 x 2 x 2.3 cm oval-shaped circumscribed hypoechoic lesion within the anterior left th igh which corresponds to the incidental finding on CT from earlier today. Given lack of color flow, t his could reflect a complex cyst. However, other etiologies such as a nerve sheath tumor could appear similar. Nonemergent MRI with and without contrast is recommended for further evaluation. ACT 112: Negative or not required by law. Electronically signed by: Edward Enamorado M.D. 11/07/2023 2:31 PM
--- NOTE | 2023-11-07 14:40 | XRay Report ---
XR chest 1V not portable CLINICAL HISTORY: flank pain TECHNIQUE: Single frontal radiograph of the chest was obtained. Comparison: Comparison is made to chest radiograph 07/14/2021 FINDINGS: No lines and tubes are seen. The cardiomediastinal silhouette is normal. The lungs are clear. No evid ence of pleural effusion or pneumothorax. IMPRESSION: No acute chest disease. ACT 112: Negative or not required by law. Electronically signed by: Jose Middleton M.D. 11/07/2023 2:39 PM
--- NOTE | 2023-11-07 14:56 | XRay Report ---
KUB CLINICAL HISTORY: Right ureteral stone. FINDINGS: 2 AP supine abdominal radiographs are compared to study dated 07/09/2021 and correlated with abdominal CT performed earlier the same day 11/07/2023. A 6 mm calcification is again seen projecting over the distal right ureter below the pelvic brim. This corresponds to the right ureteral stone see n on today's CT scan. There is a cluster of at least 4 nonobstructing calculi projecting over the rig ht kidney which measures up to 10 mm in aggregate dimension. No calcifications are clearly seen proje cting over the left kidney. No bowel obstruction is identified. The bony structures appear intact. IMPRESSION: 1. A 6 mm calcification is again seen projecting over the distal right ureter as above. This correspo nds to the ureteral stent seen on today's CT scan. 2. Additional nonobstructing right renal calculi as above. Electronically signed by: Montez Avina M.D. 11/07/2023 2:54 PM
[2023-11-07] MEDS: SODIUM CHLORIDE 0.9% 1,000 ML IV SCH ×2 (15:09→21:34)
[2023-11-07] MEDS: POTASSIUM CHLORIDE CRTAB 20 MEQ TABCR PO STA (15:14)
[2023-11-07] MEDS: SODIUM CHLORIDE 0.9% 1,000 ML IV ONE (15:17)
[2023-11-07 16:14] LABS: Appearance Urine Clear (Clear); Bacteria Urine Automated None Seen (None Seen); Bilirubin Urine Negative (Negative); Blood Urine 2+ (Negative); Cast Urine Automated 0-2 /lpf (0-2); Color Urine Yellow; Epithelial Cell Urine Auto 0-2 /hpf (0-2); Glucose Urine UA Negative (Negative); Ketones Urine Negative (Negative); Leukocyte Esterase Urine Negative (Negative); Nitrite Urine Negative (Negative); Protein Urine Trace (Negative); RBC Urine Automated >20 /hpf (0-2); Specific Gravity Urine 1.031 (1.000-1.030); Urobilinogen Urine Negative (Negative); WBC Urine Automated 0-5 /hpf (0-5); pH Urine 5.5 (4.5-7.5)
[2023-11-07] MEDS ORDERED: POLYETHYLENE (MIRALAX) 17 GM PACK PO PRN (16:18)
[2023-11-07] MEDS ORDERED: FAMOTIDINE 20 MG TAB PO PRN (16:18)
[2023-11-07] MEDS ORDERED: KETOROLAC 30 MG/ML VIAL IV PRN (16:18)
[2023-11-07] MEDS: ONDANSETRON INJ 2 MG/ML 2 ML VIAL IV PRN (16:34)
[2023-11-07] MEDS: TAMSULOSIN HCL 0.4 MG CAP PO SCH (17:19)
[2023-11-07] MEDS: ACETAMINOPHEN 325 MG TAB PO SCH (17:58)
[2023-11-07] MEDS: TOPIRAMATE 100 MG TAB PO SCH (20:26)
[2023-11-07] MEDS: DOCUSATE SODIUM 100 MG CAP PO SCH (20:26)
[2023-11-07] MEDS ORDERED: PROMETHAZINE HCL 6.25 MG in SODIUM CHLORIDE 0.9% 50 ML IV PRN (20:57)
[2023-11-07] MEDS ORDERED: MELATONIN 3 MG TAB PO PRN (21:00)
[2023-11-08] MEDS: diphenhydrAMINE 50 MG/ML VIAL IV PRN (00:55)
[2023-11-08] MEDS: SODIUM CHLORIDE 0.9% 1,000 ML IV ONE (01:25)
[2023-11-08] MEDS: LEVOTHYROXINE SODIUM 125 MCG TABLET PO SCH (05:16)
[2023-11-08] MEDS: FERROUS SULFATE 325 MG TAB PO SCH (08:05)
[2023-11-08] MEDS: CHOLECALCIFEROL 125 MCG (5,000 UNITS) TAB PO SCH (08:06)
[2023-11-08 08:23] LABS: Basophils # (auto) 0.07 K/uL (0.00-0.20); Basophils % (auto) 1.2 %; Eosinophils # (auto) 0.37 K/uL (0.00-0.50); Eosinophils % (auto) 6.2 %; Hematocrit (blood only) 33.9 % (37.0-47.0); Hemoglobin 10.8 g/dl (12.0-16.0); Immature Granulocytes # (auto) 0.02 K/uL (0.01-0.20); Immature Granulocytes % (auto) 0.3 %; Lymphocytes # (auto) 1.63 K/uL (1.20-3.40); Lymphocytes % (auto) 27.3 %; Mean Corpuscular Hemoglobin 28.1 pg (25.0-34.0); Mean Corpuscular Hgb Conc 31.9 g/dL (32.0-36.0); Mean Corpuscular Volume 88.3 fL (80.0-100.0); Mean Platelet Volume 13.4 fL (9.4-12.4); Monocytes # (auto) 0.51 K/uL (0.11-0.59); Monocytes % (auto) 8.5 %; Neutrophils # (auto) 3.37 K/uL (1.40-6.50); Neutrophils % (auto) 56.5 %; Platelet Count 113 K/uL (130-400); RDW Coefficient of Variation 12.4 % (11.5-14.5); RDW Standard Deviation 39.6 fL (36.4-46.3); Red Blood Count 3.84 M/uL (4.20-5.40); White Blood Count 5.97 K/ul (4.8-10.8)
[2023-11-08 08:39] LABS: BUN Creatinine Ratio 17.6 (10-20); Calcium 7.8 mg/dl (8.6-10.3); Creatinine Clr Calc Pharmacy 46.8 ml/min; Est GFR (African American) 49.1 ml/min; Est GFR (Non-African American) 42.4 ml/min; Magnesium 1.7 mg/dl (1.7-2.4); Potassium 3.8 mmol/L (3.5-5.1)
[2023-11-08 09:05] LABS: Folate (Folic Acid),Ser orPlas 12.79 ng/ml (>5.38)
[2023-11-08 09:06] LABS: Vitamin B12 > 1500 pg/ml (180-914)
--- NOTE | 2023-11-08 09:36 | Urology Progress Note ---
Date of Service November 08, 2023 Assessment & Plan (1) Acute right flank pain: (2) Right ureteral stone: (3) Hydronephrosis concurrent with and due to calculi of kidney and ureter: Plan: Follow-up of right ureteral stone She is afebrile and hemodynamically stable Labs reviewedcreatinine 1.42, no leukocytosis Urinalysis showed 2+ blood, >20 RBC, otherwise negative Urine culture pending Pain is adequately controlled She is scheduled for right ESWL as an outpatient on Thursday 11/09 She wishes to continue with plan as previously discussed She can be discharged from perspective when medically stable Recommend discharge with course of Tamsulosin and prn analgesia Continue with hydration and strain all urine will sign off, please contact our service with any additional questions or concerns Admission and Anticipated Discharge Date Admission Date: November 07, 2023 Subjective Patient seen and examined at bedside this morning She is resting in bed Flank pain overall improved, notes 1 episode yesterday evening She is voiding spontaneously Notes concentrated urine and low output No fever or chills Review of Systems Constitutional: as per Subjective / HPI Genitourinary: as per Subjective / HPI Physical Exam Constitutional: well developed and well nourished; no acute distress Respiratory: normal respiratory effort; no respiratory distress and no labored breathing Gastrointestinal (Abdomen): Inspection/Auscultation: abdomen normal to inspection Musculoskeletal: Head/Neck/Chest: normocephalic Neurologic: moves all extremities and awake Psychiatric: Orientation: alert and oriented x 3 Results & Data Vital Signs (Past 12 Hours) Vital Signs Temp Pulse Resp BP Pulse Ox O2 Del Method 11/08/23 07:07 36.4 C L 60 18 115/70 98 Room Air 11/07/23 23:07 36.6 C 45 L 16 117/77 100 Room Air PG Care Time/CCT Total # of Minutes Spent Total Time Spent with Patient: Total time spent is greater than 50% in coordination of care (as documented) at patient's floor/unit and/or counseling patient: Coding Level of Care Code 15528 SUB INP/OBS CARE 1/25MIN Diagnoses Acute right flank pain R10.9 Right ureteral stone N20.1 Hydronephrosis concurrent with and due to calculi of kidney and ureter N13.2
[2023-11-08] MEDS: IRON SUCROSE 200 MG in 0.9 % SODIUM CHLORIDE 100 ML IV ONE (09:38)
--- NOTE | 2023-11-08 11:06 | Electrocardiogram Report ---
Test Reason : Blood Pressure : / mmHG Vent. Rate : 056 BPM Atrial Rate : 056 BPM P-R Int : 124 ms QRS Dur : 118 ms QT Int : 476 ms P-R-T Axes : 065 057 061 degrees QTc Int : 459 ms Sinus bradycardia with sinus arrhythmia Borderline ECG When compared with ECG of 16-JUL-2021 06:46, T wave inversion no longer evident in Inferior leads Confirmed by Alden Morrison ([id number]) on 11/08/2023 11:06:07 AM Referred By: REFERRED SELF Confirmed By:Alden Morrison
[2023-11-08] MEDS: SODIUM CHLORIDE 0.9% 1,000 ML IV SCH (11:59)
[2023-11-08 15:09] LABS: BUN Creatinine Ratio 16.9 (10-20); Calcium 7.7 mg/dl (8.6-10.3); Creatinine Clr Calc Pharmacy 44.9 ml/min; Est GFR (African American) 46.7 ml/min; Est GFR (Non-African American) 40.3 ml/min; Potassium 3.8 mmol/L (3.5-5.1)
[2023-11-08] MEDS: oxyCODONE HCL IR 5 MG TAB (IMMEDIATE RELEASE) PO PRN (15:52)
--- NOTE | 2023-11-08 15:56 | Hospitalist Progress Note ---
Date of Service November 08, 2023 Assessment & Plan (1) Acute right flank pain: (2) Right ureteral stone: (3) Hydronephrosis concurrent with and due to calculi of kidney and ureter: (4) Mass of left thigh: (5) Hypokalemia: (6) Anemia: (7) TRACEY (acute kidney injury): Plan This is a 53 yr old F who has a significant PMH of hypothyroidism, hx of migraine, hx of nephrolithiasis who presents to ED with acute onset R sided flank pain x 1 day. Acute Right Flank Pain R ureteral stone with moderate hydroureteronephrosis TRACEY Acute CTAP 6 mm distal right ureteral calculus, just inferior to the level of the SI joint, which results in moderate right hydroureteronephrosis. Urology consulted -plan for outpt ESWL thursday 11/09 vs stent placement KUB: A 6 mm calcification is again seen projecting over the distal right ureter. Additional nonobstructing right renal calculi as above. Creatinine on admission 0.97--> 1.42 this AM--> 1L IVF administered prior to possible DC--> 1.48. Likely secondary to transient TRACEY with moderate hyd ronephrosis/stone IVF totaling 3L in ED Dilaudid, Oxy and Tramadol PRN for pain; has taken one dose of Oxy over past 24 hours scheduled colace to avoid opioid induced constipation strain all urine No leukocytosis Pt is menopausal no indication for hcg testing Trend BMP closely Anemia, Iron deficient previous hgb 14.8, 11.6 on admission-->10.8 low Iron, T sat 7%, high TIBC 382 B12 > 1500, Folate normal 12.79 no s/sx of bleeding start ferrous sulfate 325mg daily and take with largest meal of day Per [place] Equation for Fe+ Deficiency Anemia; she is 712mg total iron deficit Venofer 200 mg given this AM; will give additional 400 mg IV once in AM on 11/08 She reports having had a colonoscopy and mammogram for routine cancer screening Pt father reportedly has Multiple Myeloma; the following tests will be ordered: Serum protein electrophoresis (SPEP) with immunofixation Serum free light chain (FLC) assay Quantitative immunoglobulins Trend CBC in AM Mass of Left thigh: Acute Incidental finding noted on 2.9 x 1.9 cm circumscribed anterior left thigh low- attenuation focus, non vascular US ordered for follow up which felt consistent with complex cyst, recommending nonemergent MRI, pt requesting to do as outpatient. Vascular US: 3.5 x 2 x 2.3 cm oval-shaped circumscribed hypoechoic lesion within the anterior left thigh which corresponds to the incidental finding on CT from earlier today. Given lack of color flow, this could reflect a complex cyst. However, other etiologies such as a nerve sheath tumor could appear similar. Nonemergent MRI with and without contrast is recommended for further evaluation to be arranged as an outpatient. Hypokalemia: replace, K 3.4; 3.8 today; resolved no ectopy on monitor Hypothyroidism: chronic, stable, continue levothyroxine Hx of Migraines: continue topamax DVT ppx: SCDs, encourage ambulation FULL CODE PCP: Dr. Triplett Dispo: admit to medical for pain control/Urology consult A total of 56 minutes was spent coordinating, documenting, and providing care for this patient excluding time spent in the performance of separately billed services. This included personally viewing all current laboratories and imaging studies, medication reconciliation, outpatient chart review, and discussion with specialists. Admission and Anticipated Discharge Date Admission Date: November 07, 2023 Supervising Physician Co-Signing Physician Notes Patient was seen and examined at bedside. Acute managements: Acute kidney injury secondary to right ureteral stone: Continue with half NS at 100 mL an hour, recommend stent placement, urology evaluating. Manage right flank pain likely secondary to right ureteral stone. no s/s of uti Iron deficient anemia: Iron deficiency noted, folate low normal, patient takes vitamin B12 supplement. Will initiate IV iron today and tomorrow, oral iron once a day upon discharge. Initiate folate supplement as well. Pt concerned due to h/o MM in family, will send initial screen to look for MM. Mass of left thigh: Per Vascular US--- 5 x 2 x 2.3 cm oval-shaped circumscribed hypoechoic lesion within the anterior left thigh which corresponds to the incidental finding on CT this admission. Nonemergent MRI with and without contrast is recommended for further evaluation. On exam: on RA, nad, heart/lung/abd exam wnl. no cva tenderness. rest of the exam as above. I have seen and examined the patient and have discussed the case with the provider above. I agree with the assessment and plan as stated. Subjective Patient seen and examined at bedside this morning She is resting in bed and planned for DC She is voiding more frequently with less concentrated urine Flank pain overall improved Review of Systems Review of Systems: Neuro: (-) Falls, trauma, slurred speech HEENT: (-) TRENT, dizziness, dysphagia, visual or auditory changes CV: (-) CP, palpitations, swelling Resp: (-) SOB GI: (-) appetite changes, N/V/D, bowel changes : (-) urinary changes Skin: (-) rashes Psych: (-) anxiety, depression Physical Exam Physical Exam: Neuro: AAOx4, PERRLA, no aphagia, memory changes, CNII-XII grossly intact HEENT: head normocephalic, moist mucus membranes CV: S1/S2, (-) M/G/R, (-) edema, cap refill < 3 seconds Resp: Lungs CTA in all martínez. On RA GI: Abdomen S/NT/ND, Ax4 bowel sounds, (-) CVA tenderness; improved Musculoskeletal: 5/5 B/L UE strength, 5/5 B/L LE strength. No gait disturbance Skin: (-) rashes , (-) erythema. Psych: euthymic mood Results & Data Results & Data Vital Signs (Past 12 Hours) Vital Signs Temp Pulse Resp BP Pulse Ox O2 Del Method 11/08/23 15:51 36.7 C 62 16 118/72 96 Room Air 11/08/23 07:07 36.4 C L 60 18 115/70 98 Room Air Laboratory Results Short CBC 11/08/23 Range/Units 07:33 WBC 5.97 (4.8-10.8) K/ul Hgb 10.8 L (12.0-16.0) g/dl Hct 33.9 L (37.0-47.0) % Plt Count 113 L (130-400) K/uL BMP 11/08/23 11/08/23 07:33 14:18 Sodium 139 140 Potassium 3.8 3.8 Chloride 115 H 116 H Carbon Dioxide 19 L 19 L BUN 25 H 25 H Creatinine 1.42 H D 1.48 H Glucose 82 88 Calcium 7.8 L 7.7 L Urine 11/07/23 Range/Units 16:00 Urine Color Yellow Urine Appearance Clear (Clear) Urine pH 5.5 (4.5-7.5) Ur Specific [place] 1.031 H (1.000-1.030) Urine Protein Trace H (Negative) Urine Glucose (UA) Negative (Negative)
[2023-11-08] MEDS: SODIUM CHLORIDE 0.45 % 1,000 ML IV SCH (15:57)
--- NOTE | 2023-11-09 07:58 | Urology Progress Note ---
Date of Service November 09, 2023 Assessment & Plan (1) Right ureteral stone: (2) Hydronephrosis concurrent with and due to calculi of kidney and ureter: Plan: Follow-up of right ureteral stone She passed stones overnight--sent for analysis (pending) Creatinine improved to 0.98 today Ordered KUB today to reassess KUB showed nonvisualization of the right ureteral calculus shown on prior KUB and CT suggesting interval passage; redemonstration of right nephrolithiasis No acute surgical intervention today Will cancel scheduled Right ESWL on Monday Will arrange outpatient follow-up with our service She can be discharged from perspective when medically stable will sign off, please contact our service with any additional questions or concerns Admission and Anticipated Discharge Date Admission Date: November 07, 2023 Subjective Patient seen and examined at bedside She reports that she passed 2 stones overnight Stones collected and sent for analysis Generally feeling better, no flank pain at present Reports headache this morning Voiding spontaneously without difficulty Review of Systems Constitutional: as per Subjective / HPI Genitourinary: as per Subjective / HPI Physical Exam Constitutional: well developed and well nourished; no acute distress Respiratory: normal respiratory effort; no respiratory distress and no labored breathing Gastrointestinal (Abdomen): Inspection/Auscultation: abdomen normal to inspection Musculoskeletal: Head/Neck/Chest: normocephalic Neurologic: moves all extremities and awake Psychiatric: Orientation: alert and oriented x 3 Results & Data Vital Signs (Past 12 Hours) Vital Signs Temp Pulse Resp BP Pulse Ox O2 Del Method 11/09/23 07:26 36.7 C 89 15 136/77 97 Room Air 11/08/23 21:46 36.5 C 67 16 130/74 96 Room Air PG Care Time/CCT Total # of Minutes Spent Total Time Spent with Patient: Total time spent is greater than 50% in coordination of care (as documented) at patient's floor/unit and/or counseling patient: Coding Level of Care Code 00081 SUB INP/OBS CARE 3/50MIN Diagnoses Right ureteral stone N20.1 Hydronephrosis concurrent with and due to calculi of kidney and ureter N13.2
[2023-11-09 08:29] LABS: Hematocrit (blood only) 33.3 % (37.0-47.0); Hemoglobin 11.1 g/dl (12.0-16.0); Mean Corpuscular Hemoglobin 28.5 pg (25.0-34.0); Mean Corpuscular Hgb Conc 33.3 g/dL (32.0-36.0); Mean Corpuscular Volume 85.4 fL (80.0-100.0); Mean Platelet Volume 13.2 fL (9.4-12.4); Platelet Count 109 K/uL (130-400); RDW Coefficient of Variation 12.1 % (11.5-14.5); RDW Standard Deviation 36.9 fL (36.4-46.3); White Blood Count 6.12 K/ul (4.8-10.8)
--- NOTE | 2023-11-09 09:04 | XRay Report ---
KUB CLINICAL HISTORY: right ureteral stone, confirm passage COMPARISON STUDY: CT of the abdomen and pelvis and KUB November 07, 2023. FINDINGS: Several clustered calculi within the lower pole of the right kidney measure up to 6 mm. The re are no left renal calculi. The right ureteral calculus shown on prior CT KUB is no longer identifi ed. A small right pelvic calcification represents a vascular calcification. IMPRESSION: 1. Nonvisualization of the right ureteral calculus shown on prior KUB and CT. This suggests interval passage. 2. Redemonstration of right nephrolithiasis. ACT 112: Negative or not required by law. Electronically signed by: Edward Enamorado M.D. 11/09/2023 9:01 AM
[2023-11-09 09:22] LABS: BUN Creatinine Ratio 16.3 (10-20); Calcium 8.5 mg/dl (8.6-10.3); Creatinine Clr Calc Pharmacy 67.7 ml/min; Est GFR (African American) 76.9 ml/min; Est GFR (Non-African American) 66.3 ml/min; Immunoglobulin A 92.3 mg/dl (70-400); Immunoglobulin G 689.8 mg/dl (635-1741); Immunoglobulin M 87.1 mg/dl (45-281); Potassium 3.4 mmol/L (3.5-5.1)
[2023-11-09] MEDS: POTASSIUM CHLORIDE CRTAB 20 MEQ TABCR PO ONE (09:58)
[2023-11-09] MEDS: IRON SUCROSE 400 MG in SODIUM CHLORIDE 0.9% 250 ML IV ONE (09:59)
[2023-11-09] MEDS: FERROUS SULFATE 325 MG TAB PO SCH (10:08)
[2023-11-09] MEDS: KETOROLAC 30 MG/ML VIAL IV ONE (11:30)
[2023-11-09] MEDS: SODIUM CHLORIDE 0.9% 500 ML IV ONE (11:41)
--- NOTE | 2023-11-09 13:42 | Discharge Summary ---
Date of Service November 09, 2023 Admission HPI Per Admitting Provider This is a 53 yr old F who has a significant PMH of hypothyroidism, hx of migraine, hx of nephrolithiasis who presents to ED with acute onset R sided flank pain x 1 day. 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 She was dreaming of being shot and when she woke up with had acute onset of R sided flank pain that radiated to the groin. This was associated with nausea and vomiting. She has had similar sx in past with prior kidney stone. She has only urinated once since her manager night, but denies dysuria, hematuria or urg/freq. She further denies f/c/s, chest pain or SOB. Pt daughter is at [facility]. Discussed case with ED provider and reviewed outpt records in [facility]. CT abd/pelvis reveal a 6mm R ureteral calculus which is resulting in moderate hydroureteronephrosis. She was seen and evaluated by urology in ED who is recommending ESWL on Monday. It is recommended she be admitted for pain control. Admission Exam Per Admitting Provider Constitutional: WD/WN, vitals as above, NAD, lying in bed, pleasant, conversing easily Head: Normocephalic, Atraumatic Eyes: pupils equal, conjunctivae normal, anicteric sclerae ENMT: external ear and nose normal, oropharynx normal Neck: normal visual inspection Respiratory: normal respiratory effort, lungs clear to auscultation, no wheeze, rales, rhonchi. No accessory muscle use Cardiovascular: RRR, no murmur, no edema Abdomen: normal bowel sounds, soft Musculoskeletal: no cyanosis or clubbing, AROM x 4 Skin: no rashes, warm and dry normal turgor Neurologic: no face palsy, no dysarthria CN's II-XI intact grossly bilaterally and moves all extremities Psychiatric: A+Ox3, euthymic affect : deferred Principal Diagnosis R ureteral stone with moderate hydroureteronephrosis, right nephrolithiasis, TRACEY Discharge Exam General: Lying in bed, not in acute distress, on room air HEENT: EOMI, CARLEY, MMM Chest: Clear breath sounds bilaterally, no wheezes or crackles CVS: Regular rate and rhythm, normal heart sounds, no murmur Abdomen: Soft, non tender, not distended, normal bowel sounds Neuro: Awake, alert, oriented, conversing well, non focal Extremities: No cyanosis, clubbing or edema Discharge Data Allergies Allergy/AdvReac Type Severity Reaction Status Date / Time No Known Allergies Allergy Unknown Verified 11/07/23 12:48 Consultations 11/07/23 13:23 ED Decision to Admit Stat 11/07/23 16:18 Consult Urology Routine Ordered Studies 11/07/23 10:47 CT abd pelvis wo con Stat 11/07/23 12:19 US extremity non-vascular ltd Stat Laboratory Results WBC 6.12 K/ul (4.8-10.8) 11/09/23 08:02 RBC 3.90 M/uL (4.20-5.40) L 11/09/23 08:02 Hgb 11.1 g/dl (12.0-16.0) L 11/09/23 08:02 Hct 33.3 % (37.0-47.0) L 11/09/23 08:02 MCV 85.4 fL (80.0-100.0) 11/09/23 08:02 MCH 28.5 pg (25.0-34.0) 11/09/23 08:02 MCHC 33.3 g/dL (32.0-36.0) 11/09/23 08:02 RDW Std Deviation 36.9 fL (36.4-46.3) 11/09/23 08:02 RDW Coeff of Mona 12.1 % (11.5-14.5) 11/09/23 08:02 Plt Count 109 K/uL (130-400) L 11/09/23 08:02 MPV 13.2 fL (9.4-12.4) H 11/09/23 08:02 Immature Gran % (Auto) 0.3 % 11/08/23 07:33 Neut % (Auto) 56.5 % 11/08/23 07:33 Lymph % (Auto) 27.3 % 11/08/23 07:33 [place] % (Auto) 8.5 % 11/08/23 07:33 Eos % (Auto) 6.2 % 11/08/23 07:33 Baso % (Auto) 1.2 % 11/08/23 07:33 Neut # (Auto) 3.37 K/uL (1.40-6.50) 11/08/23 07:33 Lymph # (Auto) 1.63 K/uL (1.20-3.40) 11/08/23 07:33 [place] # (Auto) 0.51 K/uL (0.11-0.59) 11/08/23 07:33 Eos # (Auto) 0.37 K/uL (0.00-0.50) 11/08/23 07:33 Baso # (Auto) 0.07 K/uL (0.00-0.20) 11/08/23 07:33 Immature Gran # (Auto) 0.02 K/uL (0.01-0.20) 11/08/23 07:33 Sodium 141 mmol/L (136-145) 11/09/23 08:02 Potassium 3.4 mmol/L (3.5-5.1) L 11/09/23 08:02 Chloride 114 mmol/L (98-107) H 11/09/23 08:02 Carbon Dioxide 20 mmol/L (21-32) L 11/09/23 08:02 Anion Gap 7 (3-11) 11/09/23 08:02 BUN 16 mg/dl (6-23) 11/09/23 08:02 Creatinine 0.98 mg/dl (0.6-1.2) D 11/09/23 08:02 Est Cr Clr Drug Dosing 67.7 ml/min 11/09/23 08:02 Est GFR ( Amer) 76.9 ml/min 11/09/23 08:02 Est GFR (Non-Af Amer) 66.3 ml/min 11/09/23 08:02 BUN/Creatinine Ratio 16.3 (10-20) 11/09/23 08:02 Glucose 99 mg/dl (70-99(Fasting)) 11/09/23 08:02 Calcium 8.5 mg/dl (8.6-10.3) L 11/09/23 08:02 Magnesium 1.7 mg/dl (1.7-2.4) 11/08/23 07:33 Iron 26 mcg/dl (35-150) L 11/07/23 10:51 TIBC 382 mcg/dl (250-450) 11/07/23 10:51 Unsaturated IBC 356 mcg/dl (155-355) H 11/07/23 10:51 Transferrin % Sat 7 % (15-50) L 11/07/23 10:51 Total Bilirubin 1.0 mg/dl (0.2-1.0) 11/07/23 10:51 AST 17 U/L (13-39) 11/07/23 10:51 ALT 13 U/L (7-52) 11/07/23 10:51 Alkaline Phosphatase 49 U/L (34-104) 11/07/23 10:51 Total Protein 6.8 gm/dl (6.0-8.3) 11/07/23 10:51 Albumin 4.4 gm/dl (3.4-5.0) 11/07/23 10:51 Globulin 2.4 gm/dl (2.5-4.0) L 11/07/23 10:51 Albumin/Globulin Ratio 1.8 (0.9-2) 11/07/23 10:51 Lipase 46 U/L (11-82) 11/07/23 10:51 Vitamin B12 > 1500 pg/ml (180-914) H 11/08/23 07:33 Folate 12.79 ng/ml (>5.38) 11/08/23 07:33 Urine Color Yellow 11/07/23 16:00 Urine Appearance Clear (Clear) 11/07/23 16:00 Urine pH 5.5 (4.5-7.5) 11/07/23 16:00 Ur Specific [place] 1.031 (1.000-1.030) H 11/07/23 16:00 Urine Protein Trace (Negative) H 11/07/23 16:00 Urine Glucose (UA) Negative (Negative) 11/07/23 16:00 Urine Ketones Negative (Negative) 11/07/23 16:00 Urine Blood 2+ (Negative) H 11/07/23 16:00 Urine Nitrite Negative (Negative) 11/07/23 16:00 Urine Bilirubin Negative (Negative) 11/07/23 16:00 Urine Urobilinogen Negative (Negative) 11/07/23 16:00 Ur Leukocyte Esterase Negative (Negative) 11/07/23 16:00 Urine WBC (Auto) 0-5 /hpf (0-5) 11/07/23 16:00 Urine RBC (Auto) >20 /hpf (0-2) H 11/07/23 16:00 U Hyaline Cast (Auto) 0-2 /lpf (0-2) 11/07/23 16:00 U Epithel Cells (Auto) 0-2 /hpf (0-2) 11/07/23 16:00 Urine Bacteria (Auto) None Seen (None Seen) 11/07/23 16:00 IgG 689.8 mg/dl (635-1741) 11/09/23 08:02 IgA 92.3 mg/dl (70-400) 11/09/23 08:02 IgM 87.1 mg/dl (45-281) 11/09/23 08:02 Impressions Abdomen/Pelvis CT 11/07/23 10:47 CT OF THE ABDOMEN AND PELVIS WITHOUT CONTRAST CLINICAL HISTORY: Right flank pain. COMPARISON STUDY: Renal ultrasound June 15, 2021. KUB July 09, 2021. TECHNIQUE: Axial images of the abdomen and pelvis were obtained without IV contrast. Images were reviewed in the axial, sagittal, and coronal planes. Automated exposure control was utilized for the study. A dose lowering t echnique was utilized adhering to the principles of ALARA. FINDINGS: Lung bases are unremarkable. No pneumatosis, free air or portal venous gas is present. Clustered calculi within the lower pole of the right kidney measure up to 7 mm. There is moderate right hydroureteronephrosis due to a 6 mm distal right ureteral calculus, just inferior to the level of the SI joint. This is 6 cm proximal to the ureterovesical junction. There is mild right perinephric and periureteral stranding. No additional ureteral calculi are present. Evaluation of the remainder of the abdomen and pelvis is suboptimal on this unenhanced exam. Liver, spleen, adrenal glands and pancreas are unremarkable. There is no evidence for a bowel obstruction. Scattered sigmoid diverticula are present. There is no evidence for acute diverticulitis. There is no lymphadenopathy. A low-attenuation 2.9 x 1.9 cm circumscribed intermuscular focus within the anterior left thigh, between the iliopsoas and rectus femoris muscles is noted on image 308 of 365. IMPRESSION: 1. 6 mm distal right ureteral calculus, just inferior to the level of the SI joint, which results in moderate right hydroureteronephrosis. 2. Right-sided nephrolithiasis. 3. 2.9 x 1.9 cm circumscribed anterior left thigh low-attenuation focus. This is indeterminate but low suspicion. This could reflect a cyst, bursal fluid or a nerve sheath tumor, likely benign. Nonemergent ultrasound could be obtained for further evaluation. ACT 112: Negative or not required by law. Electronically signed by: Edward Enamorado M.D. 11/07/2023 12:07 PM Vascular Ultrasound 11/07/23 12:19 LEFT THIGH ULTRASOUND CLINICAL HISTORY: Left thigh lesion on CT. COMPARISON STUDY: CT of the abdomen and pelvis performed earlier today. TECHNIQUE: Sonography of the anterior left thigh was performed. FINDINGS: There is a 3.5 x 2 x 2.3 cm oval shaped circumscribed hypoechoic lesion within the anterior left thigh which corresponds to the lesion shown on CT of November 07, 2023. No color flow is identified within this lesion. No additional abnormalities are identified. IMPRESSION: 3.5 x 2 x 2.3 cm oval-shaped circumscribed hypoechoic lesion within the anterior left thigh which corresponds to the incidental finding on CT from earlier today. Given lack of color flow, this could reflect a complex cyst. However, other etiologies such as a nerve sheath tumor could appear similar. Nonemergent MRI with and without contrast is recommended for further evaluation. ACT 112: Negative or not required by law. Electronically signed by: Edward Enamorado M.D. 11/07/2023 2:31 PM Chest X-Ray 11/07/23 13:14 XR chest 1V not portable CLINICAL HISTORY: flank pain TECHNIQUE: Single frontal radiograph of the chest was obtained. Comparison: Comparison is made to chest radiograph 07/14/2021 FINDINGS: No lines and tubes are seen. The cardiomediastinal silhouette is normal. The joya ngs are clear. No evidence of pleural effusion or pneumothorax. IMPRESSION: No acute chest disease. ACT 112: Negative or not required by law. Electronically signed by: Jose Middleton M.D. 11/07/2023 2:39 PM KUB X-Ray 11/09/23 07:55 KUB CLINICAL HISTORY: right ureteral stone, confirm passage COMPARISON STUDY: CT of the abdomen and pelvis and KUB November 07, 2023. FINDINGS: Several clustered calculi within the lower pole of the right kidney measure up to 6 mm. There are no left renal calculi. The right ureteral calculus shown on prior CT KUB is no longer identified. A small right pelvic calcification represents a vascular calcification. IMPRESSION: 1. Nonvisualization of the right ureteral calculus shown on prior KUB and CT. This suggests interval passage. 2. Redemonstration of right nephrolithiasis. ACT 112: Negative or not required by law. Electronically signed by: Edward Enamorado M.D. 11/09/2023 9:01 AM Hospital Course (1) Acute right flank pain: (2) Right ureteral stone: (3) Hydronephrosis concurrent with and due to calculi of kidney and ureter: (4) Mass of left thigh: (5) Hypokalemia: (6) Anemia: (7) TRACEY (acute kidney injury): Plan This is a 53 yr old F who has a significant PMH of hypothyroidism, hx of migraine, hx of nephrolithiasis who presents to ED with acute onset R sided flank pain x 1 day. Patient was found to have right nephrolithiasis with right ureteral calculi with moderate hydroureteronephrosis along with obstructive TRACEY. She was seen by urology and opted for conservative management with ESWL for tomorrow as outpatient however she was able to pass 2 stones overnight with resolution of her flank pain and the stones were sent for analysis. She received IV hydration, IV analgesia, IV antiemetics, Flomax. Repeat labs show resolution of TRACEY. Repeat x-ray KUB shows nonvisualization of right ureteral ca lculus suggesting interval passage but redemonstration of right nephrolithiasis. Seen by urology today and cleared for discharge home with no need for additional interventions. Recommended adequate hydration and follow-up with PCP/urology for the results of stone analysis. Also found to have iron deficiency on labs and was given IV iron and being discharged on oral iron. She will follow-up with PCP for the pending labs. She had migraine with headache which have improved with iv fluids and toradol. I have given her some Toradol for her pain/headache. She is on topamax for her migraines and she does have Zofran from before. She is comfortable for discharge home. Acute Right Flank Pain due to right ureteral stone with moderate hydroureteronephrosis- Passed stone spontaneously with resolution of flank pain. Seen by urology and cleared for discharge home. Follow-up with PCP/urology for the results of stone analysis as well as right nephrolithiasis. Recommend adequate hydration. TRACEY due to obstruction from stone- resolved Anemia, Iron deficient- Status post IV iron. low Iron, T sat 7%, high TIBC 382. B12 > 1500, Folate normal 12.79. Continue oral iron supplementation and follow-up with PCP for pending labs which include Serum protein electrophoresis (SPEP) with immunofixation, Serum free light chain (FLC) assay and Quantitative immunoglobulins. hemoglobin has remained stable. Mass of Left thigh: Incidental finding noted on 2.9 x 1.9 cm circumscribed anterior left thigh low-attenuation focus, non vascular US ordered for follow up which felt consistent with complex cyst, recommending nonemergent MRI. Vascular US: 3.5 x 2 x 2.3 cm oval-shaped circumscribed hypoechoic lesion within the anterior left thigh which corresponds to the incidental finding on CT. Given lack of color flow, this could reflect a complex cyst. However, other etiologies such as a nerve sheath tumor could appear similar. Nonemergent MRI with and without contrast is recommended for further evaluation to be arranged as an outpatient. She states she will get MRI done as outpatient. Hypokalemia: Repleted prior to discharge. Hypothyroidism: chronic, stable, continue levothyroxine Hx of Migraines: continue topamax Total Time Total Time Spent Total Time Spent (In Minutes): 32 Discharge Plan Discharge Items Patient Disposition: Home - Self-Care Reason For Visit: R URETERAL STONE WITH MODERATE HYDRONEPHROSIS Discharge Diagnosis: R ureteral stone with moderate hydroureteronephrosis, right nephrolithiasis, TRACEY Condition on Discharge: Good Activity: Resume your previous activity Bathing: No limitations Non-emergency contact: Primary Care Provider and Urologist Call non-emergency contact if: you have any medication questions, your symptoms worsen, your pain is not controlled and your temperature is above 101 Follow-up/Referrals: Willam Fitzgerald MD [Physician] - () Millicent Triplett DO [Primary Care Provider] - 11/13/23 3:20 pm (Date & Time 11/13/2023 3:20 PM Provider Pat Weiner PA-C Department [facility] ) Diet: Regular Addtl Attending Provider Instructions: You were admitted to the [facility] on 11/07/23 and presented with R sided flank pain that had been occurring for one day. A KUB was performed revealing a 6 mm calcification is again seen projecting over the distal right ureter. This corresponds to the ureteral stent seen on today's CT scan. abdominal and pelvic CT was performed revealing a 6 mm distal R ureteral calculi inferior to your SIJ resulting in moderate hydroureteronephrosis. Incidentally, a left thigh mass was identified measuring 2.9 x1.9cm. A vascular ultrasound was performed confirming a 3.5 x 2 x 2.3 cm oval-shaped circumscribed hypoechoic lesion within the anterior left thigh which corresponds to the incidental finding on CT from earlier today. Given lack of color flow, this could reflect a complex cyst. However, other etiologies such as a nerve sheath tumor could appear similar. Nonemergent MRI with and without contrast is recommended for further evaluation as an outpatient. You did not have any leukocytosis or fevers. Your initial creatinine was 0.97 and today prior to discharge. You were evaluated by Urology who reviewed stone management with you including options which included conservative management with a goal of spontaneous passage of the stone vs surgical intervention with ureteroscopy and laser lithotripsy with stent placement while inpatient compared with an outpatient ESWL. You have opted currently to proceed with an outpatient initial conservative approach with a planned lithotripsy on Thursday 11/09 as an outpatient and were started on Tamsulosin. Your blood work indicated that you have Iron-deficiency anemia with a low Iron level of 26, TIBC normal at 382 and Transferrin level at 7. You were started on FerrousSulfate and were given one iron infusion while inpatient. Would recommend continued blood work follow up and investigation. RECOMMENDATIONS FOR FOLLOW-UP: * Urology Dr Fitzgerald for ESWL on Thursday 11/09; they will call with timing * PCP Pat Weiner PA-C: Sunday 11/12 at 3:20 PM MEDICATION CHANGES: * Continue your home medications as prescribed * New medications: Tamsulosin 0.4 mg by mouth daily. Continue until otherwise instructed by Urology or your PCP. Ferrous Sulfate 325 mg PO daily. Continue until otherwise instructed by your PCP Seek medical attention if you have: * temperature above 101 * chest pain or trouble breathing * abdominal pain, nausea, vomiting * diarrhea, dark stools or bloody stools * any unanswered questions or concerns Call 911 if symptoms are severe. It has been a pleasure taking care of you. Please take care of yourself. If you have any questions regarding your recent hospitalization please contact [facility] and request Kary Davila @ [phone]. Pending Studies at Discharge: No Stand-Alone Forms: My [facility], Smoking Cessation Medications and DC Order Prescriptions: New ferrous sulfate 325 mg (65 mg iron) tablet 325 mg PO DAILY Qty: 30 0RF tamsulosin 0.4 mg capsule 0.4 mg PO DAILY Qty: 14 0RF ketorolac 10 mg tablet 10 mg PO Q8H PRN (Reason: pain) 2 Days Qty: 6 0RF Continued levothyroxine 125 mcg tablet 125 mcg PO QAM cholecalciferol (vitamin D3) [Vitamin D3] 125 mcg (5,000 unit) Tablet 125 mcg PO QAM cyanocobalamin (vitamin B-12) 5,000 mcg Tablet,Disintegrating 5,000 mcg PO WK Patient Comments: mondays Rx Instructions: Monday topiramate 200 mg tablet 200 mg PO HS Discharge Orders: Discharge Order (Routine); Ordered 11/09/23 Ordered By: Nathan Jay/Other Patient Handouts: Identifying Kidney Stones, Preventing Kidney S tones Admission Data Admit Date/Time: 11/07/23 13:49 Attending Provider: aNthan Sin Admit Provider: Derick Guardado Primary Care Provider: Millicent Triplett Other Providers: Derick Guardado; Willam Fitzgerald Other Interventions: Discharge Summary Assessment (RN) Last Done: 11/08/23 11:00
== END 2023-11-09 15:23 | disposition home or self-care (01) | DRG 694 ==
LOC: ED 10:41 → SUATTDRO 13:49 → 3E 13:49
DX: N13.2 Hydronephrosis with renal and ureteral calculous obstruction; Z86.16 Personal history of COVID-19; G43.909 Migraine, unspecified, not intractable, without status migrainosus; N17.9 Acute kidney failure, unspecified; E03.9 Hypothyroidism, unspecified; Z87.442 Personal history of urinary calculi; D50.9 Iron deficiency anemia, unspecified; E87.6 Hypokalemia; L72.9 Follicular cyst of the skin and subcutaneous tissue, unspecified